=== PATIENT | male | born 1945 | race Caucasian/White ===

== ENCOUNTER 2016-10-25 14:21 | Emergency (ER) | payer MEDICARE, OTHER ==
[2016-10-25] MEDS ORDERED: Aspirin 81 MG Tab.Chew PO ONE (14:26)
[2016-10-25] MEDS ORDERED: Sodium Chloride 0.9% 1,000 ML IV ONE (14:26)
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
[2016-10-25 15:00] LABS: CHLORIDE,CL 107 mmol/L (98-110); SODIUM,NA 137 mmol/L (136-146)
--- NOTE | 2016-10-25 15:28 | CR ---
EXAMINATION: Portable chest radiograph. HISTORY: Pain. FINDINGS: The trachea is midline. The heart is normal in size. There is a left-sided pacemaker, valvular repla cement, and median sternotomy wires. The cardiomediastinal silhouette is within normal limits. No pu lmonary infiltrates, effusions or pneumothorax. Osseous structures appear unremarkable. IMPRESSION: No acute cardiopulmonary process.
[2016-10-25 16:07] VITALS: BP 142/81
== END 2016-10-25 16:03 | disposition home or self-care (01) ==
LOC: MW.ED 14:21
DX: R07.89 Other chest pain (principal); E11.9 Type 2 diabetes mellitus without complications; I10 Essential (primary) hypertension; Z79.82 Long term (current) use of aspirin; Z79.84 Long term (current) use of oral hypoglycemic drugs; Z79.899 Other long term (current) drug therapy
CPT/HCPCS: 36415; 71010; 80053; 82550; 82553; 83880; 84484; 85025; 85610; 93005; 96360; 99285; A9270; J7040; 99284

== ENCOUNTER 2018-07-30 11:00 | Inpatient (IN) | payer MEDICARE, OTHER ==
[~2018-07-30 11:00] MED LIST: ceFAZolin 2 GM in Premix Bag 1 BAG IV SCH
[2018-07-30] MEDS ORDERED: Midazolam 1 MG/ML 2 ML SDV ONE (12:05)
[2018-07-30] MEDS: Lactated Ringers 1,000 ML IV SCH ×2 (12:05→17:15)
[2018-07-30] MEDS ORDERED: fentaNYL 100 MCG/2 ML SDV ONE (12:05)
[2018-07-30] MEDS ORDERED: Propofol 200 MG/20 ML SDV ONE (12:05)
[2018-07-30] MEDS ORDERED: Lidocaine 2% 5 ML SDV ONE (12:07)
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
[2018-07-30] MEDS ORDERED: Sodium Chloride 0.9% 20 ML ONE (12:11)
[2018-07-30] MEDS ORDERED: ceFAZolin 1 GM Vial ONE (12:11)
[2018-07-30] MEDS ORDERED: ePHEDrine 50 MG/ML SDV ONE (13:48)
[2018-07-30] MEDS ORDERED: Phenylephrine 1% 10 MG/ML SDV ONE (14:13)
--- NOTE | 2018-07-30 14:52 | PCM.OPNOTE ---
- General Post-Op/Procedure Note Date of Surgery/Procedure: 07/30/18 Operative Procedure(s): left anterior total hip arthroplasty Findings: severe OA Pre Op Diagnosis: left hip osteoarthritis Post-Op Diagnosis: same Anesthesia Technique: Moderate Sedation, Spinal Primary Surgeon: Jeremie Murcia Mai Fire Adjuster: Theresa Gr Pathology: femoral head EBL in mLs: 400 Complications: none Condition: Good
[2018-07-30] MEDS ORDERED: Albuterol 0.083% 2.5 MG/3 ML Neb Soln NEB PRN (14:53)
[2018-07-30] MEDS ORDERED: Naloxone 0.4 MG/ML Syringe IVPUSH PRN (14:53)
[2018-07-30] MEDS ORDERED: 50% Dextrose in Water 50 ML Syringe IVPUSH PRN (14:53)
[2018-07-30] MEDS ORDERED: fentaNYL 100 MCG/2 ML SDV IVPUSH PRN (14:53)
[2018-07-30] MEDS ORDERED: EPINEPHrine 1 MG/1 ML Amp IVPUSH PRN (14:53)
[2018-07-30] MEDS ORDERED: Atropine 1 MG/ML SDV IVPUSH PRN ×2 (14:53)
[2018-07-30] MEDS ORDERED: Aluminum Hydroxide/Magnesium Hydroxide/Simethicone Susp 30 ML Cup PO PRN (15:00)
[2018-07-30] MEDS ORDERED: Bisacodyl 10 MG Supp RECTAL PRN (15:00)
[2018-07-30] MEDS ORDERED: Ondansetron 4 MG/2 ML SDV IV PRN (15:00)
[2018-07-30] MEDS ORDERED: diphenhydrAMINE 25 MG Cap PO PRN (15:00)
--- NOTE | 2018-07-30 15:26 | PCM.POSTAN ---
POST ANESTHESIA ASSESSMENT - MENTAL STATUS Mental Status: Alert, Oriented - RESPIRATORY Respiratory Status: Respiratory Rate WNL, Airway Patent, O2 Saturation Stable - CARDIOVASCULAR CV Status: Pulse Rate WNL, Blood Pressure Stable - GASTROINTESTINAL GI Status: No Symptoms - POST OP HYDRATION Hydration Status: Adequate & Stable
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
[2018-07-30] MEDS: Insulin Aspart 100 Units/ML 3 ML Pen SUBCUT SCH (16:32)
--- NOTE | 2018-07-30 16:33 | CR ---
EXAMINATION: Left hip HISTORY: Total hip hardware COMPARISON: 06/22/2018 TECHNIQUE: 3 views FINDINGS/IMPRESSION: Operative control films demonstrate placement of left total hip hardware in good position and alignment.
[2018-07-30] MEDS ORDERED: Finasteride 5 MG Tab PO SCH (18:00)
[2018-07-30 19:30] LABS: CHLORIDE,CL 108 mmol/L (98-107); SODIUM,NA 143 mmol/L (136-148)
[2018-07-30] MEDS: Docusate Sodium 100 MG Cap PO SCH (20:38)
[2018-07-30] MEDS: ceFAZolin 2 GM in Premix Bag 1 BAG IV SCH (20:39)
[2018-07-30] MEDS ORDERED: atorvaSTATin 40 MG Tab PO SCH (21:00)
[2018-07-30] MEDS: Acetaminophen/HYDROcodone 325-7.5 MG Tab PO PRN (22:45)
--- NOTE | 2018-07-30 23:03 | OR ---
SURGEON: Jeremie Cavazos MD DATE OF PROCEDURE: 07/30/2018 PLAYGROUND SUPERVISOR: Theresa Gr PA-C. PREOPERATIVE DIAGNOSIS: Left hip osteoarthritis. POSTOPERATIVE DIAGNOSIS: Left hip osteoarthritis. OPERATION PERFORMED: Left anterior total hip arthroplasty. ANESTHESIA: Spinal with sedation. COMPLICATION: None. SPECIMENS: Femoral head. ESTIMATED BLOOD LOSS: 100 mL. IMPLANTS: Harris Continuum trabecular metal shell with cluster holes, 58 mm outer diameter, Vivacit-E neutral liner of 36-mm inner diameter, Fitmore hip stem uncemented B extended offset size 7, Biolox ceramic femoral head 36 mm diameter, and zero neck length. INDICATIONS: The patient is a 73-year-old male with severe arthritis. He has failed conservative management. He has failed conservative management, modification therapy, injections, chronic pain on a daily basis, hindering all activities. He wished to undergo replacement. He understands the risks, benefits, and complications to include but not limited to infection, neurovascular injury, continued pain, DVT, PE, stroke, VA, , leg-length discrepancy, fracture, dislocation, he wished to proceed. PROCEDURE IN DETAIL: The patient was seen in the preoperative area. Operative extremity was marked of the patient. He was transferred to the operating room, where spinal anesthesia was given. He was placed supine on the Marlow table, and sedation was given. The legs were placed in the leg bars with a narrow perineal post. The right hip was prepped and draped in the usual sterile fashion using alcohol followed by ChloraPrep with Ioban covering. He received preop antibiotics Ancef 2 g and TXA. A 5 cm incision starting just lateral to the ASIS was made going obliquely down the femur. Hemostasis was obtained. The fascia overlying the TFL was opened lateral to lateral femoral cutaneous nerve. The interval between the TFL and sartorius deep between the abductors and rectus was opened. The anterior vessels were coagulated, and the vastus lateralis fascia was opened. The deep Slade retractor was placed. The indirect head of the rectus was released. The capsule was held and tagged with two sutures. Deep retractors were placed. The neck was cut from the saddle region to 1 cm below the lesser trochanter, and the head was removed. There was severe arthritis with complete ossification of the labrum as well as inferior osteophyte. The inferior capsule was released, and portions of the iliopsoas tendon due to severe tightness. The pulvinar was removed, and the head measured approximately 51 to 52 mm. It was sequentially reamed from 51 to 57 mm going slightly superomedially to get good fit and fill. After planing the bed to make sure it was level, under fluoroscopic control Continuum trabecular metal shell with cluster holes 58 mm diameter was placed in 10 degrees anteversion and 40 degrees of abduction. The some of the labral ossification did break off. It had excellent press fit. Neutral liner was impacted. The leg was then externally rotated, abducted, and extended, and placed in a femoral lift. The superior capsule obturator, internus, and piriformis were released. Central canal finder was utilized. The hip was sequentially broached from a starter rasp up to size a 6. It was trial reduced with extended offset 0 neck. Printed overlay technique showed equal leg length and offset, the stem to be slightly undersized, and therefore the hip was dislocated, broach backed up to size 7, which did sink slightly below the cut. Therefore a final stem B extended offset size 7 was impacted following the [place] version. It was trial reduced to zero neck length, which showed equal leg length and offset compared to the opposite side. Therefore, the hip was dislocated. The final stem 36 mm diameter, zero neck length was impacted. The hip was relocated. There was no Shuck. There was stable range of motion. The two tag sutures were tied together. The wound was irrigated throughout the case. The fascia was closed with number one Vicryl, the subcutaneous tissues with 2-0 Stratafix, and skin with running 4-0 Monocryl. Dermabond, tape, and Aquacel were placed. The patient was transferred to the recovery room stable condition. Sponge and needle counts were correct at the end of the case. There were no complications. He will be weightbearing status as tolerated, with aspirin for DVT prophylaxis. FUNMI BAPTISTE /[id number]
[2018-07-31] MEDS: Lactated Ringers 1,000 ML IV SCH (03:51)
[2018-07-31] MEDS: ceFAZolin 2 GM in Premix Bag 1 BAG IV SCH (05:59)
--- NOTE | 2018-07-31 06:11 | PCM48HPAN ---
Post Anesthesia Note - EVALUATION WITHIN 48HRS OF ANESTHETIC Vital Signs in Normal Range: Yes Patient Participated in Evaluation: Yes Respiratory Function Stable: Yes Airway Patent: Yes Cardiovascular Function Stable: Yes Hydration Status Stable: Yes Pain Control Satisfactory: Yes Nausea and Vomiting Control Satisfactory: Yes Mental Status Recovered: Yes Resp Rate: 17
[2018-07-31 06:14] LABS: CHLORIDE,CL 106 mmol/L (98-107); SODIUM,NA 138 mmol/L (136-148)
[2018-07-31] MEDS ORDERED: Sodium Chloride 0.9% 10 ML Syringe FLUSH PRN (07:14)
[2018-07-31] MEDS ORDERED: Sodium Chloride 0.9% 2.5 ML Syringe FLUSH PRN (07:14)
--- NOTE | 2018-07-31 07:15 | PCM.SN ---
- Free Text/Narrative Note: S: doing well, ambulating in hallway. pain is controlled. no chest pain/SOB. tolerating PO well. O: afebrile, vital signs stable dressing clean/dry/intact no swelling in thigh or distally. sensation intact in leg with 2+ DP and active motor strength HGB 10.3 A/P POD #1 left anterior HUGH, acute postoperative blood loss anemia - full weight bearing with walker - ecotrin/SCDs for DVT prophylaxis - pain control - home today, f/u 2 weeks
[2018-07-31] MEDS: Insulin Aspart 100 Units/ML 3 ML Pen SUBCUT SCH (07:55)
[2018-07-31] MEDS ORDERED: Aspirin 325 MG Tab PO SCH (09:00)
[2018-07-31] MEDS ORDERED: LUTEIN PO SCH (09:00)
[2018-07-31] MEDS ORDERED: MULTIVIT MIN PO SCH (09:00)
[2018-07-31] MEDS ORDERED: [UNRECOGNIZED DRUG - OTHER] PO SCH (09:00)
[2018-07-31] MEDS ORDERED: Lisinopril 5 MG Tab PO SCH (09:00)
[2018-07-31] MEDS ORDERED: LYCOPEN PO SCH (09:00)
[2018-07-31] MEDS ORDERED: Metoprolol Succinate 25 MG Tab.ER PO SCH (09:00)
[2018-07-31] MEDS: Acetaminophen/HYDROcodone 325-7.5 MG Tab PO PRN (09:11)
[2018-07-31] MEDS: Docusate Sodium 100 MG Cap PO SCH (09:14)
--- NOTE | 2018-07-31 10:42 | PCM.CONSN ---
- General Info Date of Service: 07/31/18 Admission Dx/Problem (Free Text): Admission Diagnosis/Problem Admission Diagnosis/Problem Hip replacement planned Subjective Update: Feeling good this morning. No complaints. No chest pain or SOB. Eager to go home today. Functional Status: Reports: Pain Controlled, Tolerating Diet, Ambulating - Review of Systems General: Reports: No Symptoms. Denies: Fever, Weakness, Fatigue HEENT: Reports: No Symptoms. Denies: Headaches, Sore Throat, Visual Changes Pulmonary: Reports: No Symptoms. Denies: Shortness of Breath, Cough, Sputum Cardiovascular: Reports: No Symptoms. Denies: Chest Pain Gastrointestinal: Reports: No Symptoms. Denies: Abdominal Pain, Nausea, Vomiting Genitourinary: Reports: No Symptoms. Denies: Dysuria, Frequency Musculoskeletal: Reports: No Symptoms Skin: Reports: No Symptoms Neurological: Reports: No Symptoms Psychiatric: Reports: No Symptoms - Patient Data Vitals - Most Recent: Last Vital Signs Temp 98.4 F 07/31/18 07:24 Pulse 70 07/31/18 09:15 Resp 14 07/31/18 07:24 BP 116/68 07/31/18 09:15 Pulse Ox 96 07/31/18 07:24 Weight - Most Recent: 88.451 kg I&O - Last 24 Hours: Intake & Output 07/30/18 07/31/18 07/31/18 22:59 06:59 14:59 Intake Total 50 1549 Output Total 890 Balance 50 659 Lab Results Last 24 Hours: Laboratory Results - last 24 hr 07/30/18 07/30/18 07/30/18 Range/Units 15:32 19:00 19:00 WBC 9.12 (4.0-11.0) K/uL RBC 3.88 L (4.50-5.90) M/uL Hgb 12.0 L (13.0-17.0) g/dL Hct 35.7 L (38.0-50.0) % MCV 92.0 (80.0-98.0) fL MCH 30.9 (27.0-32.0) pg MCHC 33.6 (31.0-37.0) g/dL RDW Std Deviation 46.0 (28.0-62.0) fl RDW Coeff of Karen 14 (11.0-15.0) % Plt Count 203 (150-400) K/uL MPV 8.90 (7.40-12.00) fL Neut % (Auto) 75.8 (48.0-80.0) % Lymph % (Auto) 13.4 L (16.0-40.0) % [place] % (Auto) 9.1 (0.0-15.0) % Eos % (Auto) 1.5 (0.0-7.0) % Baso % (Auto) 0.2 (0.0-1.5) % Neut # (Auto) 6.9 H (1.4-5.7) K/uL Lymph # (Auto) 1.2 (0.6-2.4) K/uL [place] # (Auto) 0.8 (0.0-0.8) K/uL Eos # (Auto) 0.1 (0.0-0.7) K/uL Baso # (Auto) 0.0 (0.0-0.1) K/uL Nucleated RBC % 0.0 /100WBC Nucleated RBCs # 0 K/uL Sodium 143 (136-148) mmol/L Potassium 4.0 (3.5-5.1) mmol/L Chloride 108 H (98-107) mmol/L Carbon Dioxide 26.6 (21.0-32.0) mmol/L BUN 15 (7.0-18.0) mg/dL Creatinine 0.6 L (0.8-1.3) mg/dL Est Cr Clr Drug Dosing 125.77 mL/min Estimated GFR (MDRD) > 60.0 ml/min Glucose 158 H (74-106) mg/dL POC Glucose 138 H (60-110) mg/dL Calcium 9.3 (8.5-10.1) mg/dL 07/31/18 07/31/18 07/31/18 Range/Units 05:10 05:10 06:12 WBC (4.0-11.0) K/uL RBC (4.50-5.90) M/uL Hgb 10.6 L (13.0-17.0) g/dL Hct 32.1 L (38.0-50.0) % MCV (80.0-98.0) fL MCH (27.0-32.0) pg MCHC (31.0-37.0) g/dL RDW Std Deviation (28.0-62.0) fl RDW Coeff of Karen (11.0-15.0) % Plt Count (150-400) K/uL MPV (7.40-12.00) fL Neut % (Auto) (48.0-80.0) % Lymph % (Auto) (16.0-40.0) % [place] % (Auto) (0.0-15.0) % Eos % (Auto) (0.0-7.0) % Baso % (Auto) (0.0-1.5) % Neut # (Auto) (1.4-5.7) K/uL Lymph # (Auto) (0.6-2.4) K/uL [place] # (Auto) (0.0-0.8) K/uL Eos # (Auto) (0.0-0.7) K/uL Baso # (Auto) (0.0-0.1) K/uL Nucleated RBC % /100WBC Nucleated RBCs # K/uL Sodium 138 (136-148) mmol/L Potassium 3.9 (3.5-5.1) mmol/L Chloride 106 (98-107) mmol/L Carbon Dioxide 23.5 (21.0-32.0) mmol/L BUN 14 (7.0-18.0) mg/dL Creatinine 0.5 L (0.8-1.3) mg/dL Est Cr Clr Drug Dosing 150.92 mL/min Estimated GFR (MDRD) > 60.0 ml/min Glucose 192 H (74-106) mg/dL POC Glucose 203 H (60-110) mg/dL Calcium 9.0 (8.5-10.1) mg/dL Med Orders - Current: Current Medications Hydrocodone Bitart/Acetaminophen ([place] 325-7.5 Mg) 1 - 2 tab PO Q4H PRN PRN Reason: Pain Last Admin: 07/31/18 09:11 Dose: 1 tab Al Hydroxide/Mg Hydroxide (Mag-Al Plus) 30 ml PO Q4H PRN PRN Reason: indigestion Albuterol (Proventil Neb Soln) 2.5 mg NEB ONETIME PRN PRN Reason: Wheezing Aspirin (Aspirin) 325 mg PO BID [facility] Last Admin: 07/31/18 09:16 Dose: 325 mg Atorvastatin Calcium (Lipitor) 40 mg PO BEDTIME [facility] Last Admin: 07/30/18 20:38 Dose: 40 mg Atropine Sulfate (Atropine 1 Mg/Ml) 0.5 mg IVPUSH ASDIRECTED PRN PRN Reason: Hypo-perfusion Atropine Sulfate (Atropine 1 Mg/Ml) 1 mg IVPUSH ASDIRECTED PRN PRN Reason: Hypo-Perfusion Bisacodyl (Dulcolax) 10 mg RECTAL DAILY PRN PRN Reason: Constipation Dextrose/Water (Dextrose 50% In Water) 50 ml IVPUSH ASDIRECTED PRN PRN Reason: Hypoglycemia Diphenhydramine HCl (Benadryl) 25 - 50 mg PO Q6H PRN PRN Reason: Itching Docusate Sodium (Colace) 100 mg PO BID [facility] Last Admin: 07/31/18 09:14 Dose: 100 mg Epinephrine HCl (Adrenalin) 1 mg IVPUSH ASDIRECTED PRN PRN Reason: ACLS Guidelines Fentanyl (Sublimaze) 50 mcg IVPUSH Q5M PRN PRN Reason: Pain Finasteride (Proscar) 5 mg PO QPM [facility] Last Admin: 07/30/18 18:04 Dose: 5 mg Cefazolin Sodium/Dextrose 2 gm (/ Premix) 50 mls @ 100 mls/hr IV ONETIME [facility] Last Admin: 07/31/18 05:22 Dose: 100 mls/hr Lactated Ringer's (Ringers, Lactated) 1,000 mls @ 100 mls/hr IV ASDIRECTED [facility] Last Admin: 07/31/18 03:51 Dose: 100 mls/hr Insulin Aspart (Novolog) 0 unit SUBCUT TIDAC [facility]; Protocol Last Admin: 07/31/18 07:55 Dose: 2 units Lisinopril (Prinivil) [facility] [place] Admin: 07/31/18 09:13 Dose: 5 mg Metoprolol Succinate (Toprol Xl) [facility] [place] Last Admin: 07/31/18 09:15 Dose: 25 mg Morphine Sulfate (Morphine Sulfate) 1 - 3 mg IV Q3H PRN PRN Reason: Pain Naloxone HCl (Narcan) 0.1 mg IVPUSH ASDIRECTED PRN PRN Reason: Respiratory Depression Ondansetron HCl (Zofran) 4 mg IV Q6HR PRN PRN Reason: NAUSEA/VOMITING Multivit-Min/Fa/Lycopen/Lutein [ Centrum Silver Men Tablet] 1 each PO DAILY [facility] Last Admin: 07/31/18 09:19 Dose: Not Given Sodium Chloride (Saline Flush) 10 ml FLUSH ASDIRECTED PRN PRN Reason: Keep Vein Open Sodium Chloride (Saline Flush) 2.5 ml FLUSH ASDIRECTED PRN PRN Reason: Keep Vein Open Discontinued Medications Cefazolin Sodium (Ancef) Confirm Administered Dose 2 gm .ROUTE .STK-MED ONE Stop: 07/30/18 12:12 Ephedrine Sulfate (Ephedrine Sulfate) Confirm Administered Dose 50 mg .ROUTE .STK-MED ONE Stop: 07/30/18 13:49 Fentanyl (Sublimaze) Confirm Administered Dose 100 mcg .ROUTE .STK-MED ONE Stop: 07/30/18 12:06 Sodium Chloride (Normal Saline) Confirm Administered Dose 20 mls @ as directed .ROUTE .STK-MED ONE Stop: 07/30/18 12:12 Cefazolin Sodium/Dextrose 2 gm (/ Premix) 50 mls @ 100 mls/hr IV Q8H [facility] Stop: 07/31/18 05:59 Last Admin: 07/31/18 05:59 Dose: 100 mls/hr Lidocaine (Xylocaine-Mpf 2%) Confirm Administered Dose 5 ml .ROUTE .STK-MED ONE Stop: 07/30/18 12:08 Midazolam HCl (Versed 1 Mg/Ml) Confirm Administered Dose 2 mg .ROUTE .STK-MED ONE Stop: 07/30/18 12:06 Phenylephrine HCl (Cheko-Synephrine) Confirm Administered Dose 10 mg .ROUTE .STK- MED ONE Stop: 07/30/18 14:14 Propofol (Diprivan 20 Ml) Confirm Administered Dose 400 mg .ROUTE .STK-MED ONE Stop: 07/30/18 12:06 Tranexamic Acid (Cyklokapron) 2,000 mg IV ONETIME ONE Stop: 07/30/18 07:06 Last Admin: 07/30/18 16:04 Dose: Not Given Tranexamic Acid (Cyklokapron) Confirm Administered Dose 2,000 mg .ROUTE .STK- MED ONE Stop: 07/30/18 12:53 - Exam General: Alert, Oriented, Cooperative Lungs: Clear to Auscultation, Normal Respiratory Effort Cardiovascular: Regular Rate, Regular Rhythm GI/Abdominal Exam: Normal Bowel Sounds, Soft, Non-Tender, No Distention Extremities: Normal Inspection, Normal Range of Motion, Non-Tender Neurological: No New Focal Deficit Psy/Mental Status: Alert, Normal Affect, Normal Mood Consult PN Assessment/Plan Procedures: Procedures ASSAY OF CK (CPK) (10/25/16) ASSAY OF FREE THYROXINE (11/26/14) ASSAY OF NATRIURETIC PEPTIDE (10/25/16) ASSAY OF TROPONIN QUANT (10/25/16) ASSAY THYROID STIM HORMONE (11/26/14) CHEST X-RAY 1 VIEW FRONTAL (10/25/16) COMPLETE CBC W/AUTO DIFF WBC (07/03/18) COMPREHEN METABOLIC PANEL (07/03/18) CREATINE MB FRACTION (10/25/16) DRAIN/INJ JOINT/BURSA W/O US (02/09/18) ELECTROCARDIOGRAM TRACING (10/25/16) EMERGENCY DEPT VISIT (10/25/16) GLYCOSYLATED HEMOGLOBIN TEST (07/03/18) HYDRATION IV INFUSION INIT (10/25/16) LIPID PANEL (11/26/14) NEEDLE LOCALIZATION BY XRAY (02/09/18) PROTHROMBIN TIME (07/03/18) ROUTINE VENIPUNCTURE (07/03/18) THROMBOPLASTIN TIME PARTIAL (07/03/18) URINALYSIS AUTO W/SCOPE (07/03/18) URINE CULTURE/COLONY COUNT (07/03/18) X-RAY EXAM CHEST 2 VIEWS (07/05/18) X-RAY EXAM HIP UNI 2-3 VIEWS (06/22/18) X-RAY EXAM OF HIP (01/16/14) X-RAY EXAM OF PELVIS (01/16/14) (1) Hx of CABG SNOMED Code(s): 884598878, 707876290 Code(s): Z95.1 - PRESENCE OF AORTOCORONARY BYPASS GRAFT Current Visit: Yes (2) Pacemaker SNOMED Code(s): 766511597 Code(s): Z95.0 - PRESENCE OF CARDIAC PACEMAKER Current Visit: Yes (3) Hx of sick sinus syndrome SNOMED Code(s): 480604195313855, 052498402938914 Code(s): Z86.79 - PERSONAL HISTORY OF OTHER DISEASES OF THE CIRCULATORY SYSTEM Current Visit: Yes (4) CAD (coronary artery disease) SNOMED Code(s): 68462293 Code(s): I25.10 - ATHSCL HEART DISEASE OF [place] CORONARY ARTERY W/O ANG PCTRS Current Visit: Yes (5) S/P AVR SNOMED Code(s): 1192387589010, 51095273, 0819440301941 Code(s): Z95.2 - PRESENCE OF PROSTHETIC HEART VALVE Current Visit: Yes (6) HTN (hypertension) SNOMED Code(s): 15266259 Code(s): I10 - ESSENTIAL (PRIMARY) HYPERTENSION Current Visit: Yes (7) DM type 2 (diabetes mellitus, type 2) SNOMED Code(s): 95835407 Code(s): E11.9 - TYPE 2 DIABETES MELLITUS WITHOUT COMPLICATIONS Current Visit: Yes (8) BPH (benign prostatic hyperplasia) SNOMED Code(s): 298947341 Code(s): N40.0 - BENIGN PROSTATIC HYPERPLASIA WITHOUT LOWER URINRY TRACT SYMP Current Visit: Yes Problem List Initiated/Reviewed/Updated: Yes My Orders Last 24 Hours: My Active Orders 07/30/18 15:25 Blood Glucose Check, Bedside [RC] TIDAC 07/30/18 17:00 Insulin Aspart [NovoLOG] See Protocol SUBCUT TIDAC Plan: This 73 year old male admitted for L anterior hip arthroplasty, hospitalist service consulted for medical management. 1. S/P L anterior hip arthroplasty: Orders per Orthopedics 2. CAD: Stable. Continue ASA and statin. No chest pain 4 METS at home. 3. HTN: Stable, continue Lisinopril and Metoprolol 4. DM Type 2: Controlled, hold Metformin. Novolog SSI. Ok to restart Metformin on DC. 5. BPH: Stable, continue Proscar VTE prophylaxis: Recommended when deemed appropriate by Orthopedics
[2018-07-31 11:59] VITALS: BP 126/57
--- NOTE | 2018-07-31 17:25 | PCM.DCSUM1 ---
Discharge Summary - Hospital Course Brief History: Patient was admitted for elective left total hip arthroplasty. Postoperatively he was measured floor where his pain was controlled his diet was advanced and he participated in physical therapy with weightbearing as tolerated. He did very well postoperatively and was subsequently discharged home on postoperative day #1. He'll receive aspirin for DVT prophylaxis. He'll follow-up in clinic in 2 weeks. Diagnosis: Stroke: No - Discharge Data Discharge Date: 07/31/18 Discharge Disposition: Home, Self-Care 01 Condition: Good - Patient Summary/Data Operative Procedure(s) Performed: left anterior total hip arthroplasty Consults: Consultations 07/30/18 14:57 Consult to Physician [CONS] Routine PT Evaluation and Treatment [CONS] Routine - Patient Instructions Diet: Usual Diet as Tolerated Activity: Apply Ice, Full Weight Bearing Driving, Other: may drive when not taking narcotics Showering/Bathing: May Shower Wound/Incision Care: Do NOT Change Dressing Notify Provider of: Fever, Swelling and Redness, Drainage - Discharge Plan *PRESCRIPTION DRUG MONITORING PROGRAM REVIEWED*: No *COPY OF PRESCRIPTION DRUG MONITORING REPORT IN PATIENT MYRIAM: No Home Medications: Home Meds Aspirin 325 mg PO QAM 10/25/16 [History] Metoprolol Succinate [Toprol XL] 25 mg PO QAM 10/25/16 [History] Sildenafil Citrate [Sildenafil] 50 mg PO ASDIRECTED PRN 10/25/16 [History] Cholecalciferol (Vitamin D3) [Vitamin D3] 5,000 unit PO DAILY 07/26/18 [History] Cyanocobalamin (Vitamin B12) [Vitamin B12] 1,000 mcg PO DAILY 07/26/18 [History] Finasteride 5 mg PO QPM 07/26/18 [History] Lisinopril 5 mg PO QAM 07/26/18 [History] Multivit-Min/FA/Lycopen/Lutein [Centrum Silver Men Tablet] 1 tab PO DAILY [History] atorvaSTATin [Lipitor] 40 mg PO BEDTIME 07/26/18 [History] metFORMIN [Glucophage XR] 500 mg PO BID 07/26/18 [History] Patient Handouts: Acetaminophen; Hydrocodone tablets or capsules, Total Hip Replacement, [id number], Docusate capsules, Aspirin capsules or tablets extended release Referrals: Theresa Gr PA [Physician Film Or Tape Librarian] - 08/14/18 10:20 am - Discharge Summary/Plan Comment DC Time >30 min.: No - Patient Data Vitals - Most Recent: Last Vital Signs Temp 37.0 C 07/31/18 11:57 Pulse 70 07/31/18 11:57 Resp 12 07/31/18 11:57 BP 126/57 L 07/31/18 11:57 Pulse Ox 93 L 07/31/18 11:57 Weight - Most Recent: 88.451 kg I&O - Last 24 hours: Intake & Output 07/31/18 07/31/18 07/31/18 06:59 14:59 22:59 Intake Total 1549 500 Output Total 890 400 Balance 659 100 Lab Results - Last 24 hrs: Laboratory Results - last 24 hr 07/30/18 07/30/18 07/31/18 Range/Units 19:00 19:00 05:10 WBC 9.12 (4.0-11.0) K/uL RBC 3.88 L (4.50-5.90) M/uL Hgb 12.0 L 10.6 L (13.0-17.0) g/dL Hct 35.7 L 32.1 L (38.0-50.0) % MCV 92.0 (80.0-98.0) fL MCH 30.9 (27.0-32.0) pg MCHC 33.6 (31.0-37.0) g/dL RDW Std Deviation 46.0 (28.0-62.0) fl RDW Coeff of Karen 14 (11.0-15.0) % Plt Count 203 (150-400) K/uL MPV 8.90 (7.40-12.00) fL Neut % (Auto) 75.8 (48.0-80.0) % Lymph % (Auto) 13.4 L (16.0-40.0) % [place] % (Auto) 9.1 (0.0-15.0) % Eos % (Auto) 1.5 (0.0-7.0) % Baso % (Auto) 0.2 (0.0-1.5) % Neut # (Auto) 6.9 H (1.4-5.7) K/uL Lymph # (Auto) 1.2 (0.6-2.4) K/uL [place] # (Auto) 0.8 (0.0-0.8) K/uL Eos # (Auto) 0.1 (0.0-0.7) K/uL Baso # (Auto) 0.0 (0.0-0.1) K/uL Nucleated RBC % 0.0 /100WBC Nucleated RBCs # 0 K/uL Sodium 143 (136-148) mmol/L Potassium 4.0 (3.5-5.1) mmol/L Chloride 108 H (98-107) mmol/L Carbon Dioxide 26.6 (21.0-32.0) mmol/L BUN 15 (7.0-18.0) mg/dL Creatinine 0.6 L (0.8-1.3) mg/dL Est Cr Clr Drug Dosing 125.77 mL/min Estimated GFR (MDRD) > 60.0 ml/min Glucose 158 H (74-106) mg/dL POC Glucose (60-110) mg/dL Calcium 9.3 (8.5-10.1) mg/dL 07/31/18 07/31/18 Range/Units 05:10 06:12 WBC (4.0-11.0) K/uL RBC (4.50-5.90) M/uL Hgb (13.0-17.0) g/dL Hct (38.0-50.0) % MCV (80.0-98.0) fL MCH (27.0-32.0) pg MCHC (31.0-37.0) g/dL RDW Std Deviation (28.0-62.0) fl RDW Coeff of Karen (11.0-15.0) % Plt Count (150-400) K/uL MPV (7.40-12.00) fL Neut % (Auto) (48.0-80.0) % Lymph % (Auto) (16.0-40.0) % [place] % (Auto) (0.0-15.0) % Eos % (Auto) (0.0-7.0) % Baso % (Auto) (0.0-1.5) % Neut # (Auto) (1.4-5.7) K/uL Lymph # (Auto) (0.6-2.4) K/uL [place] # (Auto) (0.0-0.8) K/uL Eos # (Auto) (0.0-0.7) K/uL Baso # (Auto) (0.0-0.1) K/uL Nucleated RBC % /100WBC Nucleated RBCs # K/uL Sodium 138 (136-148) mmol/L Potassium 3.9 (3.5-5.1) mmol/L Chloride 106 (98-107) mmol/L Carbon Dioxide 23.5 (21.0-32.0) mmol/L BUN 14 (7.0-18.0) mg/dL Creatinine 0.5 L (0.8-1.3) mg/dL Est Cr Clr Drug Dosing 150.92 mL/min Estimated GFR (MDRD) > 60.0 ml/min Glucose 192 H (74-106) mg/dL POC Glucose 203 H (60-110) mg/dL Calcium 9.0 (8.5-10.1) mg/dL Med Orders - Current: Current Medications Discontinued Medications Hydrocodone Bitart/Acetaminophen ([place] 325-7.5 Mg) 1 - 2 tab PO Q4H PRN PRN Reason: Pain Last Admin: 07/31/18 09:11 Dose: 1 tab Al Hydroxide/Mg Hydroxide (Mag-Al Plus) 30 ml PO Q4H PRN PRN Reason: indigestion Albuterol (Proventil Neb Soln) 2.5 mg NEB ONETIME PRN PRN Reason: Wheezing Aspirin (Aspirin) 325 mg PO BID [facility] Last Admin: 07/31/18 09:16 Dose: 325 mg Atorvastatin Calcium (Lipitor) 40 mg PO BEDTIME [facility] Last Admin: 07/30/18 20:38 Dose: 40 mg Atropine Sulfate (Atropine 1 Mg/Ml) 0.5 mg IVPUSH ASDIRECTED PRN PRN Reason: Hypo-perfusion Atropine Sulfate (Atropine 1 Mg/Ml) 1 mg IVPUSH ASDIRECTED PRN PRN Reason: Hypo-Perfusion Bisacodyl (Dulcolax) 10 mg RECTAL DAILY PRN PRN Reason: Constipation Cefazolin Sodium (Ancef) Confirm Administered Dose 2 gm .ROUTE .STK-MED ONE Stop: 07/30/18 12:12 Dextrose/Water (Dextrose 50% In Water) 50 ml IVPUSH ASDIRECTED PRN PRN Reason: Hypoglycemia Diphenhydramine HCl (Benadryl) 25 - 50 mg PO Q6H PRN PRN Reason: Itching Docusate Sodium (Colace) 100 mg PO BID [facility] Last Admin: 07/31/18 09:14 Dose: 100 mg Ephedrine Sulfate (Ephedrine Sulfate) Confirm Administered Dose 50 mg .ROUTE .STK-MED ONE Stop: 07/30/18 13:49 Epinephrine HCl (Adrenalin) 1 mg IVPUSH ASDIRECTED PRN PRN Reason: ACLS Guidelines Fentanyl (Sublimaze) Confirm Administered Dose 100 mcg .ROUTE .STK-MED ONE Stop: 07/30/18 12:06 Fentanyl (Sublimaze) 50 mcg IVPUSH Q5M PRN PRN Reason: Pain Finasteride (Proscar) 5 mg PO QPM [facility] Last Admin: 07/30/18 18:04 Dose: 5 mg Cefazolin Sodium/Dextrose 2 gm (/ Premix) 50 mls @ 100 mls/hr IV ONETIME [facility] Last Admin: 07/31/18 05:22 Dose: 100 mls/hr Lactated Ringer's (Ringers, Lactated) 1,000 mls @ 100 mls/hr IV ASDIRECTED [facility] Last Admin: 07/31/18 03:51 Dose: 100 mls/hr Sodium Chloride (Normal Saline) Confirm Administered Dose 20 mls @ as directed .ROUTE .STK-MED ONE Stop: 07/30/18 12:12 Cefazolin Sodium/Dextrose 2 gm (/ Premix) 50 mls @ 100 mls/hr IV Q8H [facility] Stop: 07/31/18 05:59 Last Admin: 07/31/18 05:59 Dose: 100 mls/hr Insulin Aspart (Novolog) 0 unit SUBCUT TIDAC [facility]; Protocol Last Admin: 07/31/18 07:55 Dose: 2 units Lidocaine (Xylocaine-Mpf 2%) Confirm Administered Dose 5 ml .ROUTE .STK-MED ONE Stop: 07/30/18 12:08 Lisinopril (Prinivil) 5 mg PO [facility] Last Admin: 07/31/18 09:13 Dose: 5 mg Metoprolol Succinate ([facility] Xl) [facility] [place] Admin: 07/31/18 09:15 Dose: 25 mg Midazolam HCl (Versed 1 Mg/Ml) Confirm Administered Dose 2 mg .ROUTE .STK-MED ONE Stop: 07/30/18 12:06 Morphine Sulfate (Morphine Sulfate) 1 - 3 mg IV Q3H PRN PRN Reason: Pain Naloxone HCl (Narcan) 0.1 mg IVPUSH ASDIRECTED PRN PRN Reason: Respiratory Depression Ondansetron HCl (Zofran) 4 mg IV Q6HR PRN PRN Reason: NAUSEA/VOMITING Multivit-Min/Fa/Lycopen/Lutein [ Centrum Silver Men Tablet] 1 each PO DAILY [facility] Last Admin: 07/31/18 09:19 Dose: Not Given Phenylephrine HCl (Cheko-Synephrine) Confirm Administered Dose 10 mg .ROUTE .STK- MED ONE Stop: 07/30/18 14:14 Propofol (Diprivan 20 Ml) Confirm Administered Dose 400 mg .ROUTE .STK-MED ONE Stop: 07/30/18 12:06 Sodium Chloride (Saline Flush) 10 ml FLUSH ASDIRECTED PRN PRN Reason: Keep Vein Open Sodium Chloride (Saline Flush) 2.5 ml FLUSH ASDIRECTED PRN PRN Reason: Keep Vein Open Tranexamic Acid (Cyklokapron) 2,000 mg IV ONETIME ONE Stop: 07/30/18 07:06 Last Admin: 07/30/18 16:04 Dose: Not Given Tranexamic Acid (Cyklokapron) Confirm Administered Dose 2,000 mg .ROUTE .STK- MED ONE Stop: 07/30/18 12:53
== END 2018-07-31 12:00 | disposition home or self-care (01) | DRG 470 ==
LOC: MW.MS 11:00
PROVIDERS: ADMIT Orthopaedic Surgery; ATTEND Orthopaedic Surgery
PROC: 0SRB04Z Replacement of Left Hip Joint with Ceramic on Polyethylene Synthetic Substitute, Open Approach (ICD-10-PCS; principal; 2018-07-30)
DX: M16.12 Unilateral primary osteoarthritis, left hip (principal); D62 Acute posthemorrhagic anemia; M25.752 Osteophyte, left hip; I25.10 Atherosclerotic heart disease of native coronary artery without angina pectoris; I10 Essential (primary) hypertension; E78.00 Pure hypercholesterolemia, unspecified; E78.5 Hyperlipidemia, unspecified; E11.9 Type 2 diabetes mellitus without complications; I65.29 Occlusion and stenosis of unspecified carotid artery; H91.90 Unspecified hearing loss, unspecified ear; N40.0 Benign prostatic hyperplasia without lower urinary tract symptoms; M54.9 Dorsalgia, unspecified; G89.29 Other chronic pain; Z79.01 Long term (current) use of anticoagulants; Z95.1 Presence of aortocoronary bypass graft; Z88.8 Allergy status to other drugs, medicaments and biological substances; Z95.3 Presence of xenogenic heart valve; Z79.84 Long term (current) use of oral hypoglycemic drugs; Z79.899 Other long term (current) drug therapy; Z79.82 Long term (current) use of aspirin; Z86.010 Personal history of colon polyps; Z88.2 Allergy status to sulfonamides; Z95.0 Presence of cardiac pacemaker
CPT/HCPCS: 36415; 76000; 76000-26; 80048; 82962; 85014; 85018; 85025; 97161-GP; A9270-GY; C1776; J0690; J1815-GY; J2001; J2250; J2370; J2704; J3010; J7120

== ENCOUNTER 2020-05-24 12:54 | Emergency (ER) | payer OTHER, MEDICARE ==
[2020-05-24] MEDS ORDERED: Diphtheria,Pertussis(Acell),Tetanus Vaccine 0.5 ML Syringe IM ONE (13:17)
[2020-05-24 13:31] LABS: BLOOD UREA NITROGEN,BUN 19 mg/dL (7.0-18.0); CARBON DIOXIDE,CO2 22.5 mmol/L (21.0-32.0); CHLORIDE,CL 106 mmol/L (98-107); GLUCOSE RANDOM 172 mg/dL (74-106); POTASSIUM,K 3.4 mmol/L (3.5-5.1); SODIUM,NA 142 mmol/L (136-148)
--- NOTE | 2020-05-24 14:25 | CR ---
HISTORY: Fall while shoveling. Trauma. COMPARISON: 07/05/2018. FINDINGS: Single frontal view of the chest. The lungs are clear. No evidence for pneumonia. Heart size and pulmonary vascularity are within normal limits. No evidence for pleural effusion. Bony structures appear intact. Dictated by Eugenie Calderon MD @ May 24 2020 2:23PM Signed by Dr. Eugenie Calderon @ May 24 2020 2:23PM
--- NOTE | 2020-05-24 14:29 | CR ---
HISTORY: Fall. COMPARISON: 06/22/2018. FINDINGS: There has been interval placement of left hip arthroplasty. Hardware appears intact and well seated. No evidence for acute fracture or dislocation. There are phleboliths within the pelvis. Postsurgical sutures in the midline in left pelvis, unchanged. IMPRESSION: No acute fracture or dislocation. Dictated by Eugenie Calderon MD @ May 24 2020 2:25PM Signed by Dr. Eugenie Calderon @ May 24 2020 2:27PM
--- NOTE | 2020-05-24 14:33 | CT ---
HISTORY: Fall. Facial trauma. COMPARISON: None. TECHNIQUE: Noncontrast axial images were obtained through the brain. FINDINGS: Mitchell-white matter differentiation is preserved. No evidence for acute intracranial hemorrhage or infarction. No midline shift or mass effect. The ventricles are nondilated and symmetric. No abnormal intra or extra-axial fluid collection. There is a comminuted minimally displaced nasal bone fracture. Soft tissue swelling about the nose. There is a small amount of fluid within the left maxillary sinus and fluid opacification of ethmoid air cells. IMPRESSION: No acute intracranial pathology. Acute nasal bone fracture. Please note that all CT scans at this facility use dose modulation, iterative reconstruction, and/or weight-based dosing when appropriate to reduce radiation dose to as low as reasonably achievable. Dictated by Eugenie Calderon MD @ May 24 2020 2:27PM Signed by Dr. Eugenie Calderon @ May 24 2020 2:32PM
--- NOTE | 2020-05-24 14:37 | CT ---
HISTORY: Fall while shoveling snow. Facial trauma. COMPARISON: CT head 05/24/2020. FINDINGS: There is an acute comminuted minimally displaced nasal bone fracture with associated soft tissue swelling about the nose. Fluid opacification of ethmoid air cells as well as air-fluid level in the left maxillary sinus. The maxillary sinus harris appears intact. Minimal fluid in the sphenoid sinus. The frontal sinus is clear. Polypoid mucosal thickening is noted in the right maxillary sinus. IMPRESSION: Acute comminuted mildly displaced nasal bone fracture with associated soft tissue swelling of the nose. Likely secondary fluid within the ethmoid air cells left maxillary sinus and sphenoid sinuses. Please note that all CT scans at this facility use dose modulation, iterative reconstruction, and/or weight-based dosing when appropriate to reduce radiation dose to as low as reasonably achievable. Dictated by Eugenie Calderon MD @ May 24 2020 2:25PM Signed by Dr. Eugenie Calderon @ May 24 2020 2:35PM
--- NOTE | 2020-05-24 14:42 | CT ---
HISTORY: Fall while shoveling. Facial trauma. COMPARISON: None. TECHNIQUE: Noncontrast axial images were obtained the cervical spine with sagittal and coronal reconstructions. FINDINGS: Mild multilevel degenerative changes. The central neural canal is patent. No evidence for acute fracture or dislocation. Alignment is within normal. Prevertebral soft tissues are within normal. Air-fluid levels appreciated within the left maxillary sinus. Please note that all CT scans at this facility use dose modulation, iterative reconstruction, and/or weight-based dosing when appropriate to reduce radiation dose to as low as reasonably achievable. Dictated by Eugenie Calderon MD @ May 24 2020 2:25PM Signed by Dr. Eugenie Calderon @ May 24 2020 2:40PM
[2020-05-24] MEDS ORDERED: Lidocaine 1% with EPINEPHrine 1:100,000 10 ML MDV INJECT ONE (14:56)
[2020-05-24] MEDS ORDERED: Lidocaine 1% with EPINEPHrine 1:100,000 20 ML MDV ONE (15:04)
[2020-05-24] MEDS ORDERED: Lidocaine 1% with EPINEPHrine 1:100,000 20 ML MDV INJECT ONE (15:06)
[2020-05-24] MEDS ORDERED: Amoxicillin/Clavulanate K 875-125 MG Tab PO ONE (15:56)
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
[2020-05-24] MEDS ORDERED: Sodium Chloride 0.65% Nasal Spray 45 ML Bottle NAS PRN (16:05)
[2020-05-24] MEDS ORDERED: Bacitracin Oint 1 GM U/D Packet TOP ONE (16:12)
[2020-05-24 16:13] VITALS: BP 142/72; PULSE 66
== END 2020-05-24 16:33 | disposition home or self-care (01) ==
LOC: MW.ED 12:54
DX: S02.2XXA Fracture of nasal bones, initial encounter for closed fracture (principal); S01.511A Laceration without foreign body of lip, initial encounter; I25.10 Atherosclerotic heart disease of native coronary artery without angina pectoris; E11.9 Type 2 diabetes mellitus without complications; E78.00 Pure hypercholesterolemia, unspecified; I10 Essential (primary) hypertension; M19.90 Unspecified osteoarthritis, unspecified site; Z95.1 Presence of aortocoronary bypass graft; Z88.8 Allergy status to other drugs, medicaments and biological substances; Z88.2 Allergy status to sulfonamides; Z23 Encounter for immunization; Z79.82 Long term (current) use of aspirin; Z79.84 Long term (current) use of oral hypoglycemic drugs; Z79.899 Other long term (current) drug therapy; W01.10XA Fall on same level from slipping, tripping and stumbling with subsequent striking against unspecified object, initial encounter
CPT/HCPCS: 12011; 70450; 70486; 71045; 72125; 72170; 80048; 82550; 83735; 85025; 85610; 86850; 86900; 86901; 90471; 93005; 99284; A9270; 99283

== ENCOUNTER 2021-11-11 12:47 | Emergency (ER) | payer MEDICARE, OTHER ==
[2021-11-11 14:42] VITALS: BP 141/79; PULSE 67
== END 2021-11-11 14:59 | disposition home or self-care (01) ==
LOC: MW.ED 12:47
DX: S93.402A Sprain of unspecified ligament of left ankle, initial encounter (principal); I25.10 Atherosclerotic heart disease of native coronary artery without angina pectoris; E78.00 Pure hypercholesterolemia, unspecified; E11.9 Type 2 diabetes mellitus without complications; Z86.16 Personal history of COVID-19; Z88.2 Allergy status to sulfonamides; Z88.8 Allergy status to other drugs, medicaments and biological substances; Z79.899 Other long term (current) drug therapy; Z79.82 Long term (current) use of aspirin; Z79.84 Long term (current) use of oral hypoglycemic drugs; X58.XXXA Exposure to other specified factors, initial encounter
CPT/HCPCS: 73610-26-LT; 73610-LT; 99283

== ENCOUNTER 2024-06-26 13:52 | Emergency (ER) | payer MEDICARE, OTHER ==
[2024-06-26 14:21] VITALS: BP 159/88; PULSE 63
[2024-06-26 14:35] LABS: BILIRUBIN,URINE NEGATIVE (NEGATIVE); COLOR,URINE YELLOW; GLUCOSE,URINE NEGATIVE (NEGATIVE); KETONES,URINE NEGATIVE (NEGATIVE); LEUKOCYTE ESTERASE,URINE NEGATIVE (NEGATIVE); NITRITE,URINE NEGATIVE (NEGATIVE); OCCULT BLOOD,URINE LARGE (NEGATIVE); PROTEIN,URINE NEGATIVE (NEGATIVE); UROBILINOGEN,URINE 0.2 EU/dL (<2.0)
[2024-06-26 14:36] LABS: APPEARANCE,URINE HAZY
[2024-06-26 14:48] LABS: BACTERIA,URINE RARE (NEGATIVE); EPITHELIAL CELLS,URINE RARE (NONE-FEW); WBC,URINE 0-1 (0-5/HPF)
[2024-06-26] MEDS: Tamsulosin 0.4 MG Cap.ER PO ONE (16:33)
== END 2024-06-26 16:34 | disposition home or self-care (01) ==
LOC: MW.ED 13:52
DX: N20.2 Calculus of kidney with calculus of ureter (principal); I10 Essential (primary) hypertension; I25.10 Atherosclerotic heart disease of native coronary artery without angina pectoris; E78.00 Pure hypercholesterolemia, unspecified; E11.9 Type 2 diabetes mellitus without complications; Z95.1 Presence of aortocoronary bypass graft; Z95.0 Presence of cardiac pacemaker; Z79.82 Long term (current) use of aspirin; Z79.899 Other long term (current) drug therapy; Z88.8 Allergy status to other drugs, medicaments and biological substances; Z88.2 Allergy status to sulfonamides; Z75.8 Other problems related to medical facilities and other health care
CPT/HCPCS: 74176; 74176-26; 81001; 87086; 99283; 99284